=== PATIENT | female | born 1990 | race Hispanic/Latino ===

== ENCOUNTER 2019-09-15 20:24 | Observation (INO) | payer MEDICAID ==
[~2019-09-15] VITALS: Ht 152.4 cm; Wt 79.8 kg
[2019-09-15 21:13] LABS: APPEARANCE,URINE Cloudy (CLEAR); BILIRUBIN,URINE Negative (NEGATIVE); COLOR,URINE Yellow (YELLOW); GLUCOSE, URINE (UA) Negative (NEGATIVE); KETONES,URINE Negative (NEGATIVE); LEUKOCYTE ESTERASE ,URINE Large (NEGATIVE); NITRATE,URINE Negative (NEGATIVE); OCCULT BLOOD,URINE Negative (NEGATIVE); PH,URINE 6.5 (5.0-8.0); PROTEIN,URINE Trace mg/dL (NEGATIVE)
[2019-09-15 21:29] LABS: BACTERIA,URINE Few /HPF (None Seen); RBC,URINE 0-1 /HPF (0-1); SQUAMOUS EPITHELIAL CELL,UR Moderate /HPF (0-2)
[2019-09-15 22:08] VITALS: BP 115/65
== END 2019-09-15 22:30 | disposition home or self-care (01) ==
LOC: EDH 20:24 → LDH 21:10
PROVIDERS: ADMIT Obstetrics & Gynecology; ATTEND Obstetrics & Gynecology
DX: O62.9 Abnormality of forces of labor, unspecified (principal); Z87.891 Personal history of nicotine dependence; Z3A.37 37 weeks gestation of pregnancy
CPT/HCPCS: 81001; 87077; 87088; 87186; 99284; G0378 ×2

== ENCOUNTER 2019-09-16 20:24 | Inpatient (IN) | payer MEDICAID ==
[~2019-09-16] VITALS: Ht 152.4 cm; Wt 77.6 kg
[2019-09-16 20:45] VITALS: BP 119/71
[2019-09-16] MEDS: LACTATED RINGERS 1000ML 1,000 ML IV PRN ×2 (21:00→22:31)
[2019-09-16 21:58] LABS: APPEARANCE,URINE Clear (CLEAR); BILIRUBIN,URINE Negative (NEGATIVE); COLOR,URINE Yellow (YELLOW); GLUCOSE, URINE (UA) Negative (NEGATIVE); KETONES,URINE >=160 mg/dL (NEGATIVE); LEUKOCYTE ESTERASE ,URINE Small (NEGATIVE); NITRATE,URINE Negative (NEGATIVE); OCCULT BLOOD,URINE Negative (NEGATIVE); PROTEIN,URINE Trace mg/dL (NEGATIVE)
[2019-09-16 22:11] LABS: HEMATOCRIT 34.9 % (36-48); MEAN CORPUSCULAR HEMOGLOBIN 28.1 pg (27.0-33.0); MEAN CORPUSCULAR VOLUME 85.3 fL (79-99); RED BLOOD CELL COUNT(AUTO) 4.09 MIL/uL (4.00-5.50); RED CELL DISTRIBUTION WIDTH 14.4 % (11.0-15.5); WHITE BLOOD COUNT (AUTO) 10.7 K/uL (4.8-10.8)
[2019-09-16 22:21] LABS: BACTERIA,URINE Few /HPF (None Seen); MUCUS,URINE Few LPF (None Seen); SQUAMOUS EPITHELIAL CELL,UR Few /HPF (0-2)
[2019-09-17] MEDS ORDERED: PREN1TAB80 PO (00:35)
[2019-09-17] MEDS ORDERED: FERR-82 PO (00:35)
[2019-09-17] MEDS ORDERED: OXYTOCIN-LR 20 UNITS/1000 ML 1,000 ML IV ONE ×3 (03:21→10:58)
[2019-09-17] MEDS ORDERED: OXYTOCIN 10 USP UNITS/ML 20 UNIT in LACTATED RINGERS 1000ML 1,000 ML IV SCH (04:00)
[2019-09-17] MEDS ORDERED: NALOXONE HCL 0.4 MG/1 ML ML IV PRN (08:30)
[2019-09-17] MEDS ORDERED: ROPIVACAINE 0.2% 100ML VIAL 100 ML EP SCH (08:30)
[2019-09-17] MEDS ORDERED: EPHEDRINE SULFATE 50 MG/ML AMPULE IVP PRN (08:30)
[2019-09-17] MEDS ORDERED: LACTATED RINGERS 500 ML 500 ML IV PRN (08:30)
[2019-09-17] MEDS ORDERED: FENTANYL CITRATE PF 50 MCG/1 ML 2ML VIAL ONE (08:43)
[2019-09-17] MEDS: LACTATED RINGERS 1000ML 1,000 ML IV PRN (09:00)
[2019-09-17] MEDS ORDERED: MEASLES/MUMPS/RUBELLA VACCINE, LIVE 0.5 ML/VIAL SQ PRN (11:45)
[2019-09-17] MEDS ORDERED: LANOLIN 30GM OINTMENT TP PRN (11:45)
[2019-09-17] MEDS ORDERED: BENZOCAINE/LANOLIN/ALOE VERA 60 ML AEROSOL TP PRN (11:45)
[2019-09-17] MEDS ORDERED: WITCH HAZEL 1 PAD TP PRN (11:45)
[2019-09-17] MEDS ORDERED: ACETAMINOPHEN-CODEINE 300/30MG TAB PO PRN (11:45)
[2019-09-17] MEDS ORDERED: ACETAMINOPHEN 325 MG TAB PO PRN (11:45)
[2019-09-17] MEDS ORDERED: DIPH,PERTUSS(ACELL),TET VAC/PF 0.5 ML VIAL IM PRN (11:45)
[2019-09-17 13:34] VITALS: BP 114/69
[2019-09-17 16:13] VITALS: BP 124/71
[2019-09-17] MEDS: IBUPROFEN 600 MG TABLET PO PRN (16:24)
[2019-09-17 19:32] VITALS: BP 120/66
[2019-09-17] MEDS: DOCUSATE SODIUM 100 MG CAP PO SCH (21:34)
[2019-09-17 23:44] VITALS: BP 121/71
[2019-09-18] MEDS: IBUPROFEN 600 MG TABLET PO PRN ×2 (00:21→09:13)
[2019-09-18 03:43] VITALS: BP 106/56
--- NOTE | 2019-09-18 06:18 | NUR ---
Communication: Dr. Patino called informed that patient has no orders for CBC this morning. She said, " No if she' OK and vital signs are OK she doesn't need one."
[2019-09-18 07:22] VITALS: BP 111/74
[2019-09-18 08:11] LABS: HEPATITIS Bs ANTIGEN SCREEN P Negative (Negative)
[2019-09-18] MEDS: DOCUSATE SODIUM 100 MG CAP PO SCH (09:13)
[2019-09-18] MEDS ORDERED: IBUP-2070 PO (09:33)
--- NOTE | 2019-09-18 10:10 | NUR ---
verbal and written discharge instructions given, informed of the follow up appointment, prescription given. all questions answered. informed to call the doctor for future concerns. pt voiced understanding to all things discussed. Addendum: 09/18/19 at 1023 by JOSEF DEL TORO RN Amended: Links added.
--- NOTE | 2019-09-18 10:55 | NUR ---
pt is dismissed in stable condition, brought to private car via wheelchair by efrain Alves pcp Addendum: 09/18/19 at 1148 by JOSEF DEL TORO RN Amended: Links added.
== END 2019-09-18 10:55 | disposition home or self-care (01) | DRG 560 ==
LOC: EDH 20:24 → LDH 20:25 → OBSVTOIN 20:40 → WSH 09-17 13:15
PROVIDERS: ADMIT Obstetrics & Gynecology; ATTEND Obstetrics & Gynecology
PROC: 10E0XZZ Delivery of Products of Conception, External Approach (ICD-10-PCS; principal; 2019-09-17)
PROC: 10907ZC Drainage of Amniotic Fluid, Therapeutic from Products of Conception, Via Natural or Artificial Opening (ICD-10-PCS; 2019-09-17)
PROC: 3E0234Z Introduction of Serum, Toxoid and Vaccine into Muscle, Percutaneous Approach (ICD-10-PCS; 2019-09-17)
PROC: 3E0134Z Introduction of Serum, Toxoid and Vaccine into Subcutaneous Tissue, Percutaneous Approach (ICD-10-PCS; 2019-09-17)
PROC: 3E0R3BZ Introduction of Anesthetic Agent into Spinal Canal, Percutaneous Approach (ICD-10-PCS; 2019-09-17)
PROC: 00HU33Z Insertion of Infusion Device into Spinal Canal, Percutaneous Approach (ICD-10-PCS; 2019-09-17)
DX: O80 Encounter for full-term uncomplicated delivery (principal); Z37.0 Single live birth; Z23 Encounter for immunization; Z3A.38 38 weeks gestation of pregnancy
CPT/HCPCS: 36415; 81001; 85027; 86592; 86850; 86900; 86901; 87077; 87088; 87186; 87340; 90715; A4314; A4606; G0378; J2590; J3010; J7120